=== PATIENT | male | born 1975 | race Asian ===

== ENCOUNTER 2016-09-16 03:50 | Emergency (ER) | payer MEDICAID ==
[~2016-09-16] VITALS: Ht 180.3 cm; Wt 123.4 kg
[~2016-09-16 03:50] MED LIST: ALBU1.25 NEB; AMOX875T PO; DOXY100T PO; LACT1CAP24 PO; SULF1TAB3 PO
[2016-09-16 03:51] VITALS: BP 118/78
== END 2016-09-16 05:17 | disposition home or self-care (01) ==
LOC: ED 05:11
DX: Z76.0 Encounter for issue of repeat prescription (principal); J45.21 Mild intermittent asthma with (acute) exacerbation; E66.01 Morbid (severe) obesity due to excess calories; Z59.0 Homelessness
CPT/HCPCS: 99283

== ENCOUNTER 2016-09-16 05:58 | Emergency (ER) | payer MEDICAID ==
[~2016-09-16] VITALS: Ht 180.3 cm; Wt 126.0 kg
[2016-09-16 07:14] LABS: BLOOD UREA NITROGEN 20 mg/dL (7-18)
[2016-09-16] MEDS ORDERED: POTASSIUM CHLORIDE 20 MEQ TAB.ER.PRT PO ONE (08:00)
[2016-09-16] MEDS ORDERED: POTASSIUM CHLORIDE 20 MEQ TAB.ER.PRT ONE (09:15)
[2016-09-16 09:19] VITALS: BP 119/65
== END 2016-09-16 09:21 | disposition home or self-care (01) ==
LOC: ED 06:21
DX: S30.1XXA Contusion of abdominal wall, initial encounter (principal); F15.20 Other stimulant dependence, uncomplicated; X58.XXXA Exposure to other specified factors, initial encounter; Y93.89 Activity, other specified; Y92.89 Other specified places as the place of occurrence of the external cause; Y99.9 Unspecified external cause status
CPT/HCPCS: 36415; 80048; 85025; 99285

== ENCOUNTER 2016-12-12 17:00 | Emergency (ER) | payer MEDICAID ==
[~2016-12-12] VITALS: Ht 180.3 cm; Wt 122.4 kg
[~2016-12-12 17:00] MED LIST changes: +SULF-169 PO; -SULF1TAB3 PO
[2016-12-12 17:10] VITALS: BP 136/87
== END 2016-12-12 18:04 | disposition home or self-care (01) ==
LOC: ED 17:53
DX: J02.8 Acute pharyngitis due to other specified organisms (principal)
CPT/HCPCS: 87081; 87880; 99284

== ENCOUNTER 2016-12-15 12:57 | Emergency (ER) | payer MEDICAID ==
[~2016-12-15] VITALS: Ht 180.3 cm; Wt 121.2 kg
[2016-12-15 13:00] VITALS: BP 139/86
== END 2016-12-15 13:56 | disposition home or self-care (01) ==
LOC: ED 13:53
DX: B37.0 Candidal stomatitis (principal); J45.909 Unspecified asthma, uncomplicated; E66.01 Morbid (severe) obesity due to excess calories; F25.9 Schizoaffective disorder, unspecified; Z90.49 Acquired absence of other specified parts of digestive tract
CPT/HCPCS: 99283

== ENCOUNTER 2017-02-25 19:39 | Emergency (ER) | payer MEDICAID ==
[~2017-02-25] VITALS: Ht 185.4 cm; Wt 125.0 kg
[2017-02-25] MEDS ORDERED: ZIPRASIDONE 20 MG INJ IM ONE ×2 (20:00)
[2017-02-25] MEDS ORDERED: LORazepam 2 MG/ML, 1ML ONE (20:00)
[2017-02-25] MEDS ORDERED: LORazepam 2 MG/ML, 1ML IM ONE (20:00)
[2017-02-25] MEDS ORDERED: SODIUM CHLORIDE 0.9% 1,000ML IVBOLUS ONE (20:00)
[2017-02-25 21:53] LABS: HEMATOCRIT 48.5 % (39.2-51.8); HEMOGLOBIN 16.6 g/dL (13.7-18.0); WHITE BLOOD COUNT 15.2 x10^3/uL (3.4-10)
[2017-02-25 21:57] LABS: BLOOD UREA NITROGEN 15 mg/dL (7-18)
[2017-02-25 22:00] LABS: ACETAMINOPHEN < 2 mcg/mL (10-30)
[2017-02-25 23:32] VITALS: BP 144/93
[2017-02-28] MEDS ORDERED: ZIPR80CA2 PO (20:49)
== END 2017-02-25 23:58 | disposition home or self-care (01) ==
LOC: ED 23:52
DX: F41.1 Generalized anxiety disorder (principal); E66.01 Morbid (severe) obesity due to excess calories; F15.10 Other stimulant abuse, uncomplicated; F31.9 Bipolar disorder, unspecified; F25.9 Schizoaffective disorder, unspecified; Z90.49 Acquired absence of other specified parts of digestive tract
CPT/HCPCS: 36415; 80048; 80307; 80329; 82040; 85025; 96372; 99284; J2060; J3486; G0479; G0480

== ENCOUNTER 2017-03-01 03:36 | Emergency (ER) | payer MEDICAID ==
[~2017-03-01] VITALS: Ht 172.7 cm; Wt 120.0 kg
[~2017-03-01 03:36] MED LIST changes: +ZIPR80CA2 PO
[2017-03-01 03:39] VITALS: BP 130/74
== END 2017-03-01 04:28 | disposition home or self-care (01) ==
LOC: ED 04:16
DX: Z76.0 Encounter for issue of repeat prescription (principal); E66.9 Obesity, unspecified; Z90.49 Acquired absence of other specified parts of digestive tract
CPT/HCPCS: 99283